=== PATIENT | female | born 1945 | race Caucasian/White ===

== ENCOUNTER 2019-11-06 21:05 | Inpatient (IN) | payer OTHER ==
[~2019-11-06] VITALS: Ht 213.4 cm; Wt 5.0 kg
[2019-11-06] MEDS ORDERED: ATIVAN1 M1 (21:09)
[2019-11-10] MEDS ORDERED: PERCOCET 5-3251 EACH PO (07:48)
[2019-11-10] MEDS ORDERED: ELIQUIS2.5 MG PO (07:48)
[2019-11-10] MEDS ORDERED: DUI500 PO (07:48)
== END 2019-11-10 11:52 | DRG 470 ==
LOC: ER 21:05 → SEC-K 11-07 07:26 → SURH 11-07 07:26
PROVIDERS: ADMIT Orthopaedic Surgery
PROC: 0SRS0JZ Replacement of Left Hip Joint, Femoral Surface with Synthetic Substitute, Open Approach (ICD-10-PCS; principal; 2019-11-07 14:00)
DX: S72.002A Fracture of unspecified part of neck of left femur, initial encounter for closed fracture (principal); I45.2 Bifascicular block; M81.0 Age-related osteoporosis without current pathological fracture; W18.39XA Other fall on same level, initial encounter; Y93.89 Activity, other specified; M16.12 Unilateral primary osteoarthritis, left hip

== ENCOUNTER 2021-12-27 14:43 | Emergency (ER) | payer OTHER ==
[~2021-12-27] VITALS: Ht 167.6 cm; Wt 59.4 kg
[~2021-12-27 14:43] MED LIST: ATIVAN1 M1; DUI500 PO; ELIQUIS2.5 MG PO; PERCOCET 5-3251 EACH PO
== END 2021-12-27 22:25 | disposition home or self-care (01) ==
LOC: ER 14:43
DX: S09.90XA Unspecified injury of head, initial encounter (principal); S79.912A Unspecified injury of left hip, initial encounter; S79.911A Unspecified injury of right hip, initial encounter; W18.30XA Fall on same level, unspecified, initial encounter; Y93.9 Activity, unspecified; Y92.009 Unspecified place in unspecified non-institutional (private) residence as the place of occurrence of the external cause; Y99.9 Unspecified external cause status